=== PATIENT | female | born 1950 | race Asian ===

== ENCOUNTER 2017-05-21 20:00 | Emergency (ER) | payer MEDICARE, MEDICAID ==
[~2017-05-21] VITALS: Ht 152.4 cm; Wt 84.0 kg
[2017-05-22] MEDS ORDERED: ALBUTEROL (0.5%) 2.5MG/0.5ML NEB HHN ONE (00:45)
[2017-05-22] MEDS ORDERED: ACETAMINOPHEN 500MG TABLET ONE (00:56)
[2017-05-22] MEDS: ACETAMINOPHEN 325MG TABLET PO ONE ×2 (01:07→01:27)
[2017-05-22] MEDS ORDERED: ACETAMINOPHEN 500MG TABLET PO NR (01:30)
[2017-05-22 02:58] VITALS: BP 129/64
== END 2017-05-22 03:03 | disposition home or self-care (01) ==
LOC: ER 20:00
DX: R05 Cough (principal); R51 Headache; I10 Essential (primary) hypertension; E78.00 Pure hypercholesterolemia, unspecified; F32.9 Major depressive disorder, single episode, unspecified
CPT/HCPCS: 71020; 94640; 99284; J7611